=== PATIENT | male | born 1990 | race African-American/Black ===

== ENCOUNTER 2017-04-27 18:54 | Observation (INO) | payer OTHER ==
[~2017-04-27] VITALS: Ht 172.7 cm; Wt 83.9 kg
[2017-04-27] MEDS ORDERED: SODIUM CHLORIDE 0.9% 1000ML 1,000 ML IV SCH (19:12)
[2017-04-27 19:33] LABS: BASO % 0.5 %; BASO ABS # 0.03 K/uL (0-0.2); EOS % 0.9 %; EOS ABS # 0.06 K/uL (0-0.5); HEMATOCRIT 44.2 % (42-52); HEMOGLOBIN 15.4 g/dL (14.0-18.0); IG# 0.01 K/uL (0.00-0.02); LYMPH % 26.5 %; LYMPH ABS # 1.68 K/uL (1.2-3.4); MEAN CELL VOLUME 87.7 fL (80-100); MEAN CORPUSCULAR HEMOGLOBIN 30.6 pg (25-34); MEAN CORPUSCULAR HGB CONC 34.8 g/dl (32-36); MONO % 10.9 %; MONO ABS # 0.69 K/uL (0.11-0.59); NEUT ABS # 3.87 K/uL (1.4-6.5); PLATELET COUNT 197 K/uL (130-400); RED CELL DISTRIBUTION WIDTH CV 13.6 % (11.5-14.5); RED CELL DISTRIBUTION WIDTH SD 43.9 fL (36.4-46.3); WHITE BLOOD COUNT 6.34 K/uL (4.8-10.8)
--- NOTE | 2017-04-27 19:43 | EMERGENCY ROOM VISIT NOTE ---
History First contact with patient: 19:03 Chief Complaint: ALTERED MENTAL STATUS Stated Complaint: ALTERED MENTAL STATUS Nursing Triage Summary: Pt started having an altered mental status this afternoon. Pt A&O x4. Pt has mild expressive aphasia. Pt denies taking any drugs. History of Present Illness The patient is a 27 year old male who presents to the Emergency Room via escort by 2 corrections officers with complaints of "altered mental status". The patient at 1700 hrs. was in the kitchen at [facility]. He then began acting inappropriately/saying odd things and was taken to the [facility] where they found he had dilated pupils, was trying to say the date in all ordered, and also had some on the end of his nose, and would also appear to be very erythematous nasal canals with some fresh blood droplets. Here he notes no pain , but does admit to smoking crush Tylenol mixed with tobacco 4 days ago. He states that he did not do that today but did smoke a regular cigarette. There is a noted history of worsening allergy disorder. The patient when questioned does not know why he is here. He denies any suicidal or homicidal ideations. Review of Systems A complete 10-point Review of Systems was discussed with the patient, with pertinent positives and negatives listed in the History of Present Illness. All remaining Review of Systems questions can be considered negative unless otherwise specified. Past Medical/Surgical History Medical Problems: (1) Schizoaffective disorder Family History Noncontributory Social History Smoking Status: Current Every Day Smoker Patient is incarcerated and lives locally. Current/Historical Medications No Active Prescriptions or Reported Meds Physical Exam Vital Signs Date Time Temp Pulse Resp B/P (MAP) Pulse Ox O2 Delivery O2 Flow Rate FiO2 04/27/17 20:40 72 18 122/76 98 Room Air 04/27/17 19:22 99 Room Air 04/27/17 19:22 75 04/27/17 18:57 36.9 84 18 150/84 99 Room Air Physical Exam VITAL SIGNS - Vital signs and nursing notes were reviewed. Stable. Afebrile. GENERAL -27-year-old male appearing his stated age who is in no acute distress. Communicates well with provider and answers questions appropriately. SKIN - Without rashes. No petechial rashes. HEAD - NC/AT. EYES - PERRL with EOMI bilaterally. Sclera anicteric. EARS - No deformities of external structures noted on gross examination bilaterally. No pain elicited with palpation of the tragus bilaterally. External auditory canals without discharge or otorrhea. Tympanic membranes pearly pham without retraction or bulging. No fluid or purulent material visualized behind the TM. Handle of malleus, umbo, cone of light, pars tensa/ flaccid all easily visualized. NOSE - Midline and without cyanosis. No epistaxis or purulent drainage noted. Septum midline without deviation or septal hematoma noted. MOUTH/OROPHARYNX - Without perioral cyanosis. Buccal mucosa pink and moist and without leukoplakia. Tongue midline with equal elevation of palate bilaterally. No tonsillar hypertrophy, erythema, or exudates noted. Fair dentition noted. LUNGS - Chest wall symmetric without accessory muscle use, intercostals retractions, or central cyanosis. Normal vesicular breath sounds CTA B/L. No wheezes, rales, or rhonchi appreciated. CARDIAC - RRR with S1/S2. No murmur, rubs, or gallops appreciated. EXTREMITIES - +5/5 strength noted in UE/LE bilaterally. NEUROLOGIC - Cranial nerves II through XII grossly intact. Sensory intact to light touch throughout. . PSYCH - A&Ox3 and cooperates fully with examiner. Pt is very pleasant and interacts well with examiner. He does make on smiling gestures in response to certain questions, and does begin talking about random things that do not make sense. Medical Decision & Procedures ER Provider Diagnostic Interpretation: HEAD WITHOUT CONTRAST (CT) CLINICAL HISTORY: 27 years-old Male presenting with Stroke. TECHNIQUE: Multidetector CT imaging of the head was performed without the use of intravenous contrast. IV contrast: None. A dose lowering technique was used consistent with the principles of ALARA (as low as reasonably achievable). COMPARISON: None. CT DOSE (mGy.cm): The estimated cumulative dose is 537.48 mGy.cm. FINDINGS: Science Writer topogram: Unremarkable. Ventricles and sulci normal in size. Brain parenchyma normal in appearance with preserved pham-white differentiation. No mass effect or midline shift. No hemorrhage or acute territorial infarct. No extra-axial fluid collection. Paranasal sinuses and mastoid air cells clear. Calvarium intact. IMPRESSION: 1. No acute intracranial abnormality. Electronically signed by: Shreyas Clifton M.D. 04/27/2017 7:40 PM Dictated Date/Time: 04/27/2017 7:38 PM CHEST ONE VIEW PORTABLE CLINICAL HISTORY: 27 years-old Male presenting with AMS. TECHNIQUE: Portable upright AP view of the chest was obtained. COMPARISON: None. FINDINGS: Cardiomediastinal silhouette normal. Lungs and pleural spaces clear. Posterior matter deformity of the distal left clavicle. Upper abdomen normal. IMPRESSION: 1. No acute cardiopulmonary disease. Electronically signed by: Shreyas Clifton M.D. 04/27/2017 9:04 PM Dictated Date/Time: 04/27/2017 9:03 PM Laboratory Results 04/27/17 19:20 Red Blood Count 5.04, Mean Corpuscular Volume 87.7, Mean Corpuscular Hemoglobin 30.6, Mean Corpuscular Hemoglobin Concent 34.8, Mean Platelet Volume 11.0, Neutrophils (%) (Auto) 61.0, Lymphocytes (%) (Auto) 26.5, Monocytes (%) (Auto) 10.9, Eosinophils (%) (Auto) 0.9, Basophils (%) (Auto) 0.5, Neutrophils # (Auto ) 3.87, Lymphocytes # (Auto) 1.68, Monocytes # (Auto) 0.69, Eosinophils # (Auto ) 0.06, Basophils # (Auto) 0.03 04/27/17 19:20 Test 04/27/17 19:20 04/27/17 20:00 04/27/17 20:27 White Blood Count 6.34 K/uL (4.8-10.8) Red Blood Count 5.04 M/uL (4.7-6.1) Hemoglobin 15.4 g/dL (14.0-18.0) Hematocrit 44.2 % (42-52) Mean Corpuscular Volume 87.7 fL (80-100) Mean Corpuscular Hemoglobin 30.6 pg (25-34) Mean Corpuscular Hemoglobin Concent 34.8 g/dl (32-36) Platelet Count 197 K/uL (130-400) Mean Platelet Volume 11.0 fL (7.4-10.4) Neutrophils (%) (Auto) 61.0 % Lymphocytes (%) (Auto) 26.5 % Monocytes (%) (Auto) 10.9 % Eosinophils (%) (Auto) 0.9 % Basophils (%) (Auto) 0.5 % Neutrophils # (Auto) 3.87 K/uL (1.4-6.5) Lymphocytes # (Auto) 1.68 K/uL (1.2-3.4) Monocytes # (Auto) 0.69 K/uL (0.11-0.59) Eosinophils # (Auto) 0.06 K/uL (0-0.5) Basophils # (Auto) 0.03 K/uL (0-0.2) RDW Standard Deviation 43.9 fL (36.4-46.3) RDW Coefficient of Variation 13.6 % (11.5-14.5) Immature Granulocyte % (Auto) 0.2 % Immature Granulocyte # (Auto) 0.01 K/uL (0.00-0.02) Prothrombin Time 11.4 SECONDS (9.0-12.0) Prothromb Time International Ratio 1.1 (0.9-1.1) Activated Partial Thromboplast Time 29.2 SECONDS (21.0-31.0) Partial Thromboplastin Ratio 1.1 Anion Gap 4.0 mmol/L (3-11) Est Creatinine Clear Calc Drug Dose 100.5 ml/min Estimated GFR () 96.8 Estimated GFR (Non- 83.5 BUN/Creatinine Ratio 16.5 (10-20) Bedside Glucose 85 mg/dl (70-99) Calcium Level 9.2 mg/dl (8.5-10.1) Magnesium Level 2.7 mg/dl (1.8-2.4) Total Creatine Kinase 307 U/L (39-308) Creatine Kinase MB 2.2 ng/ml (0.5-3.6) Creatine Kinase MB Ratio 0.7 (0-3.0) Troponin I < 0.015 ng/ml (0-0.045) Urine Color DK YELLOW Urine Appearance CLEAR (CLEAR) Urine pH 5.5 (4.5-7.5) Urine Specific [place] 1.034 (1.000-1.030) Urine Protein NEG (NEG) Urine Glucose (UA) NEG (NEG) Urine Ketones TRACE (NEG) Urine Occult Blood NEG (NEG) Urine Nitrite NEG (NEG) Urine Bilirubin NEG (NEG) Urine Urobilinogen NEG (NEG) Urine Leukocyte Esterase NEG (NEG) Urine Opiates Screen NEG (NEG) Urine Methadone, Qualitative NEG (NEG) Urine Barbiturates NEG (NEG) Urine Phencyclidine (PCP) Level NEG (NEG) Ur Amphetamine/Methamphetamine NEG (NEG) MDMA (Ecstasy) Screen NEG (NEG) Urine Benzodiazepines Screen NEG (NEG) Urine Cocaine Metabolite NEG (NEG) Urine Marijuana (THC) NEG (NEG) Carboxyhemoglobin 3.6 % THgb Salicylates Level 2.0 mg/dl (2.8-20) Acetaminophen Level < 2 ug/ml (10-30) Ethyl Alcohol mg/dL < 3.0 mg/dl (0-3) Medications Administered Medications (Trade) Dose Ordered Sig/Viry Route Start Time Stop Time Status Last Admin Dose Admin Sodium Chloride 1,000 ml @ 50 mls/hr Q20H IV 04/27/17 19:12 05/27/17 19:11 04/27/17 19:48 50 MLS/HR Medical Decision Patient was seen and evaluated as above. He presents to us today with objective altered mental status. IV access was initiated, the above workup was performed. CT of the head and neck were performed and found to be negative. Vital signs stable. No leukocytosis or concerning anemia. Carboxyhemoglobin negative. Coags normal. Patient metabolic panel does reveal slight dehydration with BUN at 20, creatinine 1.20. Magnesium high at 2.7. POC glucose 85. Patient does have trace ketones and concentrated urine no infection appreciated. Toxicology screen is negative. Abdominal negative. Salicylate and acetaminophen negative. The patient does have a history of unspecified personality disorder. I suspect the patient may have ingested something, however cannot specify where the other the exact cause of his altered mental status. He was reevaluated numerous times and appears to be acting the same. I did call the [facility] where he is incarcerated and spoke with them and they verify the story. They also verify he has a history of unspecified personality disorder. The case was discussed with the attending physician, and the decision was made to admit the patient for altered mental status that is persistent. He may need psychiatric evaluation. He did decline/ deny suicidal and homicidal ideations. Please refer to further documentation regarding his stay as I did discuss the case with the hospitalist. In the evaluation and treatment of this patient, the following differential diagnoses were considered: Concussion, Contrecoup Injury, Brain Tumor, Depression, Encephalitis, Hypothyroidism, Meningitis, CVA, TIA, Migraine, Cluster Headache, Intracranial Abnormality, Intracranial Hemorrhage, Subdural Hematoma, Subarachnoid Hemorrhage, Hydrocephalus, ingestion of unknown substance , among others. Impression Primary Impression: Altered mental status Additional Impression: Schizoaffective disorder Departure Information Prescriptions No Active Prescriptions or Reported Meds Referrals Margaret REDDING (PCP) Patient Instructions [facility] Problem Qualifiers
[2017-04-27 19:48] LABS: INR 1.1 (0.9-1.1); PTT PATIENT 29.2 SECONDS (21.0-31.0)
[2017-04-27 19:50] LABS: BLOOD UREA NITROGEN 20 mg/dl (7-18); CALCIUM 9.2 mg/dl (8.5-10.1); CARBON DIOXIDE 28 mmol/L (21-32); GLUCOSE 75 mg/dl (70-99); POTASSIUM 4.1 mmol/L (3.5-5.1); SODIUM 139 mmol/L (136-145)
[2017-04-27 19:55] LABS: CKMB 2.2 ng/ml (0.5-3.6)
--- NOTE | 2017-04-27 21:05 | DIAGNOSTIC IMAGING REPORT ---
CHEST ONE VIEW PORTABLE CLINICAL HISTORY: 27 years-old Male presenting with AMS. TECHNIQUE: Portable upright AP view of the chest was obtained. COMPARISON: None. FINDINGS: Cardiomediastinal silhouette normal. Lungs and pleural spaces clear. Posterior matter deformity of the distal left clavicle. Upper abdomen normal. IMPRESSION: 1. No acute cardiopulmonary disease. Electronically signed by: Shreyas Clifton M.D. 04/27/2017 9:04 PM Dictated Date/Time: 04/27/2017 9:03 PM
--- NOTE | 2017-04-27 22:26 | History and Physical ---
History & Physical Date & Time of Service: Apr 27, 2017 at 22:13 Chief Complaint: Altered Mental Status Primary Care Physician: Margaret REDDING History of Present Illness Source: patient This is a 27yo M from [place] [place] with a PMH of schizoaffective disorder who presents with altered mental status this evening. Patient was in the kitchen when he was witnessed to start mumbling and saying things that did not make sense. Was evaluated by a nurse and was found to have dilated pupils and blood in his nose. Was sent to the ED for further evaluation. Patient denies feeling confused or having difficulty speaking this afternoon and said that he just felt like acting differently. Endorses snorting Tylenol 2 days ago but denies any other drug use besides tobacco since then. States that he has been admitted to psychiatry in the past and has been diagnosed with schizoaffective disorder. Is not on medications. Upon verifying his medical history, his only psychiatric condition on record is unspecified personality disorder. Was last seen by psych in March of this year, per [facility]. Endorses hearing voices of his ex- girlfriend and brother telling him to travel on different continents. Endorses seeing figures move around in the room. Denies any SI/HI. Denies fever, chills, headache, CP, SOB, abd pain, nausea, vomiting, weakness or paresthesias of extremities. Past Medical/Surgical History Medical Problems: (1) Schizoaffective disorder Status: Chronic Family History Patient unable to report any family history. Social History Smoking Status: Current Every Day Smoker Alcohol Use: none Housing status: other ([facility]) Allergies Coded Allergies: No Known Allergies (Unverified , 04/27/17) Home Medications No Active Prescriptions or Reported Meds Review of Systems Ten systems reviewed and negative except as noted in the HPI. Physical Exam Vital Signs Date Time Temp Pulse Resp B/P (MAP) Pulse Ox O2 Delivery O2 Flow Rate FiO2 04/27/17 20:40 72 18 122/76 98 Room Air 04/27/17 19:22 99 Room Air 04/27/17 19:22 75 04/27/17 18:57 36.9 84 18 150/84 99 Room Air General Appearance: WD/WN, no apparent distress Head: normocephalic, atraumatic Eyes: normal inspection, PERRL, sclerae normal ENT: normal ENT inspection, hearing grossly normal, pharynx normal (moist mucous membranes), + pertinent finding (No epistaxis) Neck: supple, thyroid normal, trachea midline Respiratory/Chest: chest non-tender, lungs clear, normal breath sounds, no respiratory distress, no accessory muscle use Cardiovascular: regular rate, rhythm, no murmur, normal peripheral pulses Abdomen/GI: non tender, soft, no organomegaly Back: normal inspection Extremities/Musculoskelatal: normal inspection, no calf tenderness, no pedal edema 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 ) Skin: normal color, warm/dry, no rash Diagnostics Laboratory Results Results Past 24 Hours Test 04/27/17 19:20 04/27/17 20:00 04/27/17 20:27 Range/Units White Blood Count 6.34 4.8-10.8 K/uL Red Blood Count 5.04 4.7-6.1 M/uL Hemoglobin 15.4 14.0-18.0 g/dL Hematocrit 44.2 42-52 % Mean Corpuscular Volume 87.7 80-100 fL Mean Corpuscular Hemoglobin 30.6 25-34 pg Mean Corpuscular Hemoglobin Concent 34.8 32-36 g/dl Platelet Count 197 130-400 K/uL Mean Platelet Volume 11.0 7.4-10.4 fL Neutrophils (%) (Auto) 61.0 % Lymphocytes (%) (Auto) 26.5 % Monocytes (%) (Auto) 10.9 % Eosinophils (%) (Auto) 0.9 % Basophils (%) (Auto) 0.5 % Neutrophils # (Auto) 3.87 1.4-6.5 K/uL Lymphocytes # (Auto) 1.68 1.2-3.4 K/uL Monocytes # (Auto) 0.69 0.11-0.59 K/uL Eosinophils # (Auto) 0.06 0-0.5 K/uL Basophils # (Auto) 0.03 0-0.2 K/uL RDW Standard Deviation 43.9 36.4-46.3 fL RDW Coefficient of Variation 13.6 11.5-14.5 % Immature Granulocyte % (Auto) 0.2 % Immature Granulocyte # (Auto) 0.01 0.00-0.02 K/uL Prothrombin Time 11.4 9.0-12.0 SECONDS Prothromb Time International Ratio 1.1 0.9-1.1 Activated Partial Thromboplast Time 29.2 21.0-31.0 SECONDS Partial Thromboplastin Ratio 1.1 Sodium Level 139 136-145 mmol/L Potassium Level 4.1 3.5-5.1 mmol/L Chloride Level 107 98-107 mmol/L Carbon Dioxide Level 28 21-32 mmol/L Anion Gap 4.0 3-11 mmol/L Blood Urea Nitrogen 20 7-18 mg/dl Creatinine 1.20 0.60-1.40 mg/dl Est Creatinine Clear Calc Drug Dose 100.5 ml/min Estimated GFR () 96.8 Estimated GFR (Non- 83.5 BUN/Creatinine Ratio 16.5 10-20 Random Glucose 75 70-99 mg/dl Calcium Level 9.2 8.5-10.1 mg/dl Magnesium Level 2.7 1.8-2.4 mg/dl Total Creatine Kinase 307 39-308 U/L Creatine Kinase MB 2.2 0.5-3.6 ng/ml Creatine Kinase MB Ratio 0.7 0-3.0 Troponin I < 0.015 0-0.045 ng/ml Urine Color DK YELLOW Urine Appearance CLEAR CLEAR Urine pH 5.5 4.5-7.5 Urine Specific [place] 1.034 1.000-1.030 Urine Protein NEG NEG Urine Glucose (UA) NEG NEG Urine Ketones TRACE NEG Urine Occult Blood NEG NEG Urine Nitrite NEG NEG Urine Bilirubin NEG NEG Urine Urobilinogen NEG NEG Urine Leukocyte Esterase NEG NEG Urine Opiates Screen NEG NEG Urine Methadone, Qualitative NEG NEG Urine Barbiturates NEG NEG Urine Phencyclidine (PCP) Level NEG NEG Ur Amphetamine/Methamphetamine NEG NEG MDMA (Ecstasy) Screen NEG NEG Urine Benzodiazepines Screen NEG NEG Urine Cocaine Metabolite NEG NEG Urine Marijuana (THC) NEG NEG Carboxyhemoglobin 3.6 % [facility] Salicylates Level 2.0 2.8-20 mg/dl Acetaminophen Level < 2 10-30 ug/ml Ethyl Alcohol mg/dL < 3.0 0-3 mg/dl Diagnostic Radiology CT head: IMPRESSION: 1. No acute intracranial abnormality. CXR normal Impression Assessment and Plan This is a 27yo M from [facility] with a PMH of schizoaffective disorder who presents with altered mental status this evening. Altered mental status: -Endorses snorting tylenol but tox screen in clean -Per [facility] staff, suspicion for synthetic marijuana but patient denies -Psych consulted to assess for schizoaffective disorder -Patient currently not on any medications -CBC, BMP, tox screen, carboxyhemoglobin, troponin all wnl -CT head and CXR without abnormalities -Monitor on telemetry DVT Ppx: Ousmane hall Code status: FULL PCP: [facility] Dispo: Observation telemetry. Discharge planning for return to [facility]. Patient seen in collaboration with Dr. Chambers. Please see addendum. ATTENDING ADDENDUM care coordinated with PEÑA Ledezma please refer to her notes for full details, I agree with her notes patient seen and examined, records reviewed by myself as well on exam, patient seen sleeping but easily rousable, guards at the bedside not in distress, alert, calm, oriented to birthday but not to place or time recalls serving in the kitchen, and was brought to the [facility] as he was not acting right through the interview, patient would go into tangents, talking about random things admits to smoking and inhaling crushed tylenol, denies using other illicit drugs , including synthetic marijuana denies headache, dizziness, nausea, chest pain, dyspnea, palpitations denies depression, suicidal thoughts, anxiety; denies hallucinations to me history supplemented by [facility] Guard- 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 and was noted to be disoriented, mumbling words, behaving oddly brought to the [facility], noted to have elevated BP, dilated pupils and some blood from his nose Guard suspects patient may have used K2 which they have witnessed in the past no other symptoms VS noted and reviewed not oriented , not in distress, speaks in sentences with no effort nor accessory muscle use ENT no epistaxis normal rate, regular rhythm, no murmurs clear breath sounds bilaterally non distended, soft, nontender no bipedal edema, erythema, warmth no neuro deficits WBC 6.3 Crea 1.2 ASSESSMENT/PLAN> ALTERED MENTAL STATUS, PSYCHOSIS? POSSIBLY FROM: SYNTHETIC MARIJUANA USE/"K2" - urine drug screen negative CT head: negative - monitor labs IV fluids supportive care - patient also reported hallucinations during initial evaluation with PEÑA Ledezma he also reports history of schizoaffective disorder Psych consulted - no signs/symptoms of infection to cause encephalopathy other diagnoses and plan of care as per [] Mono Chambers MD Level of Care Telemetry Resuscitation Status FULL RESUSCITATION VTE Prophylaxis VTE Risk Assessment Done? Y/N: Yes Risk Level: Low Given or contraindicated: T.E.D. Stockings
[2017-04-27 22:38] VITALS: O2SAT 97
--- NOTE | 2017-04-27 23:00 | NUR ---
Psychiatric Liaison Nurse: Patient is alert to person, place. He is a poor historian and speaks with pressured, rambling speech. Giggling in between sentences, providing inconsistent stories. Stating he had "no children, lots of children, maybe 14". Patient reports he is currently in [facility] and received a maximum sentence of 15 years. Struggles to stay on task. Not making sense. Reports he would like to get put on adderal and fentayl, and that he used both in the past, purchased on the street. Spoke with the guards at bedside, who state they suspect synthetic marijuana. "There's 67 strands of the synthetic pot and it's getting to be a real epidemic. It's getting mailed into the patients frequently or smuggled in."
--- NOTE | 2017-04-27 23:00 | NUR ---
A: Patient arrived into room 279. 2 guards at bedside. Patient is speaking inappropriate and is alert to person and time. Patient was a very poor historian and did not accurately fill out the admission packet. Oriented to room and call malave system. No complaints of pain at this time. lawn care specialist placed on patient. Will continue to monitor and assess patient.
[2017-04-27] MEDS ORDERED: IV FLUIDS COMPLETED PRN (23:15)
[2017-04-28] VITALS: BP 127/77; PULSE 54; TEMP 37.1; Ht 172.7 cm; Wt 83.9 kg
--- NOTE | 2017-04-28 04:00 | NUR ---
A/OBS: Patient admitted with AMS. Pt is resting comfortably. Awoke easily, A&OX4. Denies pain, SOB, N/V. No complaints. Assessment complete, see EMR. NSR on the monitor. NSS infusing at 50ml/hr in the left forearm. Guards are present at bedside. Pt is from [facility]. Hourly rounding. Encouraged to ring for assistance. Will continue to monitor.
[2017-04-28 05:22] VITALS: BP 144/67; PULSE 73; TEMP 36.7; O2SAT 97
[2017-04-28] MEDS: SODIUM CHLORIDE 0.9% 1000ML 1,000 ML IV SCH ×2 (05:56→13:45)
[2017-04-28 05:59] LABS: BASO % 0.7 %; BASO ABS # 0.04 K/uL (0-0.2); EOS % 2.1 %; EOS ABS # 0.12 K/uL (0-0.5); HEMATOCRIT 40.6 % (42-52); HEMOGLOBIN 13.8 g/dL (14.0-18.0); IG# 0.01 K/uL (0.00-0.02); LYMPH ABS # 1.81 K/uL (1.2-3.4); MEAN CELL VOLUME 89.2 fL (80-100); MEAN CORPUSCULAR HEMOGLOBIN 30.3 pg (25-34); MEAN PLATELET VOLUME 10.2 fL (7.4-10.4); MONO ABS # 0.85 K/uL (0.11-0.59); NEUT ABS # 2.83 K/uL (1.4-6.5); PLATELET COUNT 177 K/uL (130-400); RED CELL DISTRIBUTION WIDTH SD 45.8 fL (36.4-46.3); WHITE BLOOD COUNT 5.66 K/uL (4.8-10.8)
[2017-04-28 06:33] LABS: CALCIUM 8.7 mg/dl (8.5-10.1); CREATININE 1.11 mg/dl (0.60-1.40); POTASSIUM 3.7 mmol/L (3.5-5.1)
[2017-04-28 07:20] VITALS: BP 132/81; PULSE 49; TEMP 36.6; O2SAT 99
--- NOTE | 2017-04-28 08:00 | NUR ---
A: Alert and oriented x4. VSS on room air. Independent in room with 2 guards at bedside. Denies pain, chest pain or shortness of breath. Sinus esther on monitor. IV fluids infusing as ordered. Call malave within reach. Continue to monitor.
--- NOTE | 2017-04-28 08:31 | NUR ---
PSYCHIATRIC LIAISON NURSE: Called [facility] and spoke with their medical records department to request records. Addendum: 04/28/17 at 0849 by Randa Sandoval RN Psychiatric records were faxed over from [facility]
[2017-04-28] MEDS ORDERED: INFLUENZA VIRUS QUAD VACCINE 0.5 ML SYR IM. ONE (09:45)
[2017-04-28] MEDS ORDERED: INFLUENZA ADMINISTRATION CHARGE ONE (09:45)
--- NOTE | 2017-04-28 10:06 | Psychiatric Consultation ---
Consultation Date of Consultation Apr 28, 2017. Identifying Data Oscar is a 27 yo male inmate as [facility] admit 04/27/17 for AMS. Consult is by Dr. Coker for medication management. Chief Complaint "I believe in crystals and clairvoyants". History of Present Illness Patient is a limited historian, records from [facility] were reviewed. Patient reported a history of schizoaffective disorder upon arrival to facility, previously on Zyprexa 20 mg. He was tapered off of the drug in the spring due to PRL >75. He was initially listed as unspecified depressive disorder , given apparently stability off of medications for several months this was refined to personality disorder. Per admit note, he was mumbling nonsensically in the kitchen and found with a bloody nose. At one point he made comments about snorting Tylenol and endorsed hearing voices of his ex-girlfriend and brother telling him to travel on different continents. He could not be assessed on 2 attempts by liaison nurses due to disorganization but did ask for controlled substances. Guards reported to staff they were concerned that he may have used K2 which has been smuggled regularly into the residential. Today he appears calm, still inappropriately bright affect but also seems to be viktor, initially said had no issues to discuss and then made mention of a nurses necklace. He smiled when asked about aud mendieta but did not appear to be responding to internal stimuli and said that he didn't want to discuss but that he wanted medication for the voices, "Just not benadryl or percocet". Exam is inconsistent as he readily responds to questions and when discussed options like Risperdal he clearly asked appropriate questions about PRL elevation. Past Psychiatric History Current OP Treatment: psychiatrist (facility) Prior OP Treatment: psychiatrist Prior Psych Hospitalizations: other ([facility], [place], [facility], [facility]) Access to a Gun: No Suicide Attempts: No Past Medication Trials Klonopin, Adderall, Latuda, Zyprexa up to 20 mg (hyperprolactinemia), Depakote Past Medical/Surgical History (1) Altered mental status Allergies Allergies: Coded Allergies: No Known Allergies (Unverified , 04/27/17) Home Medications No Active Prescriptions or Reported Meds Family History anxiety, patient largely unable to provide Alcohol Use Alcohol Use In Past 12 Months: No Smoking Use Smoking Status: Unknown if Ever Smoked Substance History unreliable Personal History Childhood: grew up in [place], maintains some contact with mother, 3 brothers, 2 sisters Children: reported none-14 Legal History: reported (15 year sentence) Psychological Trauma History: Denies Hx Traumatic Event Review of Systems Psych: denies symptoms other than stated above Constitutional: denied Cardiovascular: denied GI: denied Neurologic: denied Remainder of 10 body systems also reviewed and denied other than noted above. Examination Vital Signs Vital Signs Past 12 Hours Date Time Temp Pulse Resp B/P (MAP) Pulse Ox O2 Delivery O2 Flow Rate FiO2 04/28/17 08:00 Room Air 04/28/17 07:20 36.6 49 18 132/81 (98) 99 Room Air 04/28/17 05:22 36.7 73 18 144/67 (92) 97 Room Air 04/28/17 04:00 Room Air 04/28/17 00:00 37.1 54 18 127/77 Room Air 04/27/17 22:38 77 18 126/79 97 Room Air Laboratory Results Last 24 Hours Test 04/27/17 19:20 04/27/17 20:00 04/27/17 20:27 04/28/17 05:52 White Blood Count 6.34 K/uL 5.66 K/uL Red Blood Count 5.04 M/uL 4.55 M/uL Hemoglobin 15.4 g/dL 13.8 g/dL Hematocrit 44.2 % 40.6 % Mean Corpuscular Volume 87.7 fL 89.2 fL Mean Corpuscular Hemoglobin 30.6 pg 30.3 pg Mean Corpuscular Hemoglobin Concent 34.8 g/dl 34.0 g/dl Platelet Count 197 K/uL 177 K/uL Mean Platelet Volume 11.0 fL 10.2 fL Neutrophils (%) (Auto) 61.0 % 50.0 % Lymphocytes (%) (Auto) 26.5 % 32.0 % Monocytes (%) (Auto) 10.9 % 15.0 % Eosinophils (%) (Auto) 0.9 % 2.1 % Basophils (%) (Auto) 0.5 % 0.7 % Neutrophils # (Auto) 3.87 K/uL 2.83 K/uL Lymphocytes # (Auto) 1.68 K/uL 1.81 K/uL Monocytes # (Auto) 0.69 K/uL 0.85 K/uL Eosinophils # (Auto) 0.06 K/uL 0.12 K/uL Basophils # (Auto) 0.03 K/uL 0.04 K/uL RDW Standard Deviation 43.9 fL 45.8 fL RDW Coefficient of Variation 13.6 % 14.0 % Immature Granulocyte % (Auto) 0.2 % 0.2 % Immature Granulocyte # (Auto) 0.01 K/uL 0.01 K/uL Prothrombin Time 11.4 SECONDS Prothromb Time International Ratio 1.1 Activated Partial Thromboplast Time 29.2 SECONDS Partial Thromboplastin Ratio 1.1 Sodium Level 139 mmol/L 140 mmol/L Potassium Level 4.1 mmol/L 3.7 mmol/L Chloride Level 107 mmol/L 109 mmol/L Carbon Dioxide Level 28 mmol/L 27 mmol/L Anion Gap 4.0 mmol/L 4.0 mmol/L Blood Urea Nitrogen 20 mg/dl 20 mg/dl Creatinine 1.20 mg/dl 1.11 mg/dl Est Creatinine Clear Calc Drug Dose 100.5 ml/min 107.3 ml/min Estimated GFR () 96.8 106.4 Estimated GFR (Non- 83.5 91.8 BUN/Creatinine Ratio 16.5 17.9 Bedside Glucose 85 mg/dl Random Glucose 75 mg/dl 82 mg/dl Calcium Level 9.2 mg/dl 8.7 mg/dl Magnesium Level 2.7 mg/dl Total Creatine Kinase 307 U/L Creatine Kinase MB 2.2 ng/ml Creatine Kinase MB Ratio 0.7 Troponin I < 0.015 ng/ml Urine Color DK YELLOW Urine Appearance CLEAR Urine pH 5.5 Urine Specific Willard 1.034 Urine Protein NEG Urine Glucose (UA) NEG Urine Ketones TRACE Urine Occult Blood NEG Urine Nitrite NEG Urine Bilirubin NEG Urine Urobilinogen NEG Urine Leukocyte Esterase NEG Urine Opiates Screen NEG Urine Methadone, Qualitative NEG Urine Barbiturates NEG Urine Phencyclidine (PCP) Level NEG Ur Amphetamine/Methamphetamine NEG MDMA (Ecstasy) Screen NEG Urine Benzodiazepines Screen NEG Urine Cocaine Metabolite NEG Urine Marijuana (THC) NEG Carboxyhemoglobin 3.6 % THgb Salicylates Level 2.0 mg/dl Acetaminophen Level < 2 ug/ml Ethyl Alcohol mg/dL < 3.0 mg/dl Mental Examination During interview pt is: uncooperative Appearance: disheveled Eye contact is: fair Motor behavior is: no abnormal motor movements Speech: normal in rate, rhythm & volume Affect: mood congruent Mood is: other (elevated) Thought process: tangential Thought content: other (difficult to assess) Suicidal thought are: denied Homicidal thoughts are: denied Hallucinations: auditory, denies visual Cognition: language grossly intact Insight: poor Judgement: poor Impression / Recommendations Impression 27 yo male with a reported history of schizoaffective disorder who is local inmate, no antipsychotic meds for several months and was maintaining pending abrupt AMS which is suspected to be substance induced. Recommendations appears to be clearing, likely some degree of malingering today reviewed acute use of low dose Risperdal M Tab 0.5 mg BID while hospitalized, residential psychiatric team to reassess on return to facility for appropriate formulary agent, if requires longer term use (>1-2 weeks) should have routine metabolic and PRL monitoring I did not see that synthetics were ordered on initial routine urine tox so asking lab to add them or try to obtain (delay may impact)
[2017-04-28] MEDS ORDERED: RISPERIDONE ODT 0.5MG PO ONE (10:30)
[2017-04-28 11:29] VITALS: BP 120/77; PULSE 57; TEMP 36.7; O2SAT 99
--- NOTE | 2017-04-28 12:00 | NUR ---
A: Assessment unchanged. Denies pain, chest pain or shortness of breath. Call malave within reach. Continue to monitor.
--- NOTE | 2017-04-28 13:51 | Discharge Instructions ---
Discharge Instructions Date of Service Apr 28, 2017. Admission Reason for Admission: Altered Mental Status Discharge Discharge Diagnosis / Problem: Altered Mental Status Discharge Goals Goal(s): Prevent Disease Progression Activity Recommendations Activity Limitations: per Instructions/Follow-up section . Instructions / Follow-Up Instructions / Follow-Up It is recommended that you are re-evaluated by the snf psychiatrist on your return with consideration of short-term Risperidal M 0.5mg PO BID. If it were needed longer than short-term, PRL levels would need to be monitored. It was a pleasure taking care of you! Call if you have any questions or problems. [facility] hours a day by calling [phone]. Take care of yourself. Rhina Coker DO [facility] Current Hospital Diet Patient's current hospital diet: Regular Diet Discharge Diet Recommended Diet: Regular Diet Procedures Procedures Performed: None. Pending Studies Studies pending at discharge: yes List of pending studies: synthetic cannabinoids Medical Emergencies . Who to Call and When: Medical Emergencies: If at any time you feel your situation is an emergency, please call 911 immediately. . Non-Emergent Contact Non-Emergency issues call your: Primary Care Provider . . "Provider Documentation" section prepared by Rhina Coker. . VTE Core Measure Inpt VTE Proph given/why not?: Caitlyn Riley
--- NOTE | 2017-04-28 13:59 | Discharge Summary ---
Discharge Summary Date of Service Apr 28, 2017. Discharge Summary Admission Date: Apr 27, 2017 at 22:04 Discharge Date: Apr 28, 2017 Discharge Disposition: Home (long term) Principal Diagnosis: AMS poss 2/2 drug ingestion Schizoaffective disorder with acute altered mental status Procedures: None. Vaccinations: Flu Consultations: Psychiatry Pending Studies/Follow-Up: see instructions below Medication Reconciliation Medication Profile: No Active Prescriptions or Reported Meds Admission Information HPI (per Admitting provider): This is a 27yo M from [facility] with a PMH of schizoaffective disorder who presents with altered mental status this evening. Patient was in the kitchen when he was witnessed to start mumbling and saying things that did not make sense. Was evaluated by a nurse and was found to have dilated pupils and blood in his nose. Was sent to the ED for further evaluation. Patient denies feeling confused or having difficulty speaking this afternoon and said that he just felt like acting differently. Endorses snorting Tylenol 2 days ago but denies any other drug use besides tobacco since then. States that he has been admitted to psychiatry in the past and has been diagnosed with schizoaffective disorder. Is not on medications. Upon verifying his medical history, his only psychiatric condition on record is unspecified personality disorder. Was last seen by psych in March of this year, per [facility]. Endorses hearing voices of his ex- girlfriend and brother telling him to travel on different continents. Endorses seeing figures move around in the room. Denies any SI/HI. Denies fever, chills, headache, CP, SOB, abd pain, nausea, vomiting, weakness or paresthesias of extremities. Physical Exam (per Admitting): General Appearance: WD/WN, no apparent distress Head: normocephalic, atraumatic Eyes: normal inspection, PERRL, sclerae normal ENT: normal ENT inspection, hearing grossly normal, pharynx normal (moist mucous membranes), + pertinent finding (No epistaxis) Neck: supple, thyroid normal, trachea midline Respiratory/Chest: chest non-tender, lungs clear, normal breath sounds, no respiratory distress, no accessory muscle use Cardiovascular: regular rate, rhythm, no murmur, normal peripheral pulses Abdomen/GI: non tender, soft, no organomegaly Back: normal inspection Extremities/Musculoskelatal: normal inspection, no calf tenderness, no pedal edema Neurologic/Psych: 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 ) Skin: normal color, warm/dry, no rash Hospital Course The patient was seen and examined in the ER. CT head and neck were performed and found to be negative. Vital signs were stable. He had no leukocytosis or concerning anemia. Carboxyhemoglobin was negative. Coags were normal. He was admitted to medicine with ongoing confusion. He remained stable overnight and had no significant events on telemetry. It was thought that he may have ingested a synthetic cannabinoid, K2, which is a substance seen in jails recently that is not picked up on typical urine drug screenings. This synthetic test was still pending on discharge. Psych did see him and made outpatient recommendations. The following day he was mentating at baseline and tolerating PO. He was sent back to long term in stable condition. Total time spent on discharge = 60 minutes This includes examination of the patient, discharge planning, medication reconciliation, and communication with other providers. Discharge Instructions [address] [address] Discharge Medical Patient Name: Oscar Rowley [id number] Unit Number: [id number] Date of : 1990 Patient Status: Admitted Inpatient (obs) Attending Doctor: Rhina Coker DO DI: Medical v4 Discharge Instructions Date of Service Apr 28, 2017. Admission Reason for Admission: Altered Mental Status Discharge Discharge Diagnosis / Problem: Altered Mental Status Discharge Goals Goal(s): Prevent Disease Progression Activity Recommendations Activity Limitations: per Instructions/Follow-up section . Instructions / Follow-Up Instructions / Follow-Up It is recommended that you are re-evaluated by the long term psychiatrist on your return with consideration of short-term Risperidal M 0.5mg PO BID. If it were needed longer than short-term, PRL levels would need to be monitored. It was a pleasure taking care of you! Call if you have any questions or problems. You can reach a [facility] hospitalist on duty at [facility] 24 hours a day by calling [phone]. Take care of yourself. DO Edy [facility] Hospitalist Current Hospital Diet Patient's current hospital diet: Regular Diet Discharge Diet Recommended Diet: Regular Diet Procedures Procedures Performed: None. Pending Studies Studies pending at discharge: yes List of pending studies: synthetic cannabinoids Medical Emergencies . Who to Call and When: Medical Emergencies: If at any time you feel your situation is an emergency, please call 911 immediately. . Non-Emergent Contact Non-Emergency issues call your: Primary Care Provider . . "Provider Documentation" section prepared by Rhina Coker. . VTE Core Measure Inpt VTE Proph given/why not?: Caitlyn Riley Additional Copies To Margaret REDDING
[2017-04-28 14:06] VITALS: BP 120/77; PULSE 57; TEMP 36.7; O2SAT 99
--- NOTE | 2017-04-28 14:57 | NUR ---
A: MD ordered discharge. Discharge instructions provided to guardjesika. IV site discontinued, catheter intact. Monitor removed, returned to PCU. Transport back to [facility] via longterm transport.
[2017-04-28] MEDS ORDERED: RISPERIDONE ODT 0.5MG PO SCH (21:00)
== END 2017-04-28 15:10 | disposition home or self-care (01) ==
LOC: C.EDB 18:57 → C.MED 22:04 → ENRESERV 22:17
PROVIDERS: ADMIT Internal Medicine; ATTEND Hospitalist
DX: R41.82 Altered mental status, unspecified (principal); F25.9 Schizoaffective disorder, unspecified; F17.200 Nicotine dependence, unspecified, uncomplicated